=== PATIENT | male | born 1945 | race Caucasian/White ===

== ENCOUNTER → 2024-10-10 | Outpatient (CLI) | payer OTHER, SELFPAY ==
--- NOTE | 2024-10-10 12:50 | ECHOCS_ITS ---
Reason For Study: CAD/ASHD Procedure This was a 2D Doppler, Color Flow transthoracic echocardiogram. Contrast injection was performed. Exam performed in department. Left Ventricle Normal LV size. The left ventricular ejection fraction is 50 %. Mild segmental systolic dysfunction (see wall motion). Infero-Basal: Severely Hypokinetic. Right Ventricle Normal RV size. Normal systolic function. Atria Normal left atrium. Normal right atrium. Mitral Valve There is mild mitral annular calcification. Mild-Moderate (1-2+) mitral valve insufficiency. Tricuspid Valve Normal tricuspid valve. Mild to moderate (1-2+) tricuspid valve insufficiency. Pulmonary artery systolic pressure is 55 mmHg. Aortic Valve Trisinus/trileaflet aortic valve. Mild focal aortic valve thickening. Mild (1+) aortic valve insufficiency. Pulmonic Valve The pulmonic valve is not well visualized. Great Vessels Normal aortic root. The pulmonary artery is normal size. Pericardium/Pleural No pericardial effusion. Medication Diluted definity 1.5ml given slow IV push to enhance endocardial definition. MMode/2D Measurements & Calculations LVIDd: 5.1 cm IVSd: 1.0 cm LVOT diam: 2.0 cm LVIDs: 4.3 cm LVPWd: 1.1 cm RVDd: 3.8 cm FS: 14.6 % LVOT area: 3.1 cm2 Ao root diam: 3.3 cm LAV(MOD-bp): 37.0 ml LVAd ap4: 31.2 cm2 LAV(MOD-bp) Indexed: 18.7 ml/m2 LVLd ap4: 8.0 cm LAV(MOD-sp2): 45.4 ml EDV(MOD-sp4): 97.9 ml LAV(MOD-sp4): 30.6 ml EDV(sp4-el): 102.8 ml LVAs ap4: 21.0 cm2 LVLs ap4: 6.9 cm ESV(MOD-sp4): 52.8 ml ESV(sp4-el): 54.2 ml EF(MOD-sp4): 46.0 % EF(sp4-el): 47.3 % SV(MOD-sp4): 45.0 ml SV(sp4-el): 48.6 ml LA A4 area: 13.7 cm2 SI(MOD-sp4): 22.8 ml/m2 LA dimension(2D): 4.5 cm RA A4 area: 12.4 cm2 TAPSE: 0.74 cm Time Measurements MV dec time: 0.19 sec Doppler Measurements & Calculations MV E max ge: 106.3 cm/sec Lat Peak E' Ge: 4.5 cm/sec Med Peak E' Ge: 3.9 cm/sec MV A max ge: 65.0 cm/sec E/E' lat: 23.8 E/E' med: 27.6 MV E/A: 1.6 MV V2 max: 137.7 cm/sec MV dec slope: 561.6 cm/sec2 Ao V2 max: 171.5 cm/sec MV max P.6 mmHg Ao max P.8 mmHg MV V2 mean: 76.1 cm/sec Ao V2 mean: 116.6 cm/sec MV mean P.6 mmHg Ao mean P.2 mmHg MV V2 VTI: 31.9 cm Ao V2 VTI: 34.4 cm MVA(VTI): 2.1 cm2 AV (velocity ratio): 0.62 PAVEL(I,D): 1.9 cm2 PAVEL(V,D): 1.8 cm2 LV V1 max: 98.3 cm/sec SV(LVOT): 66.6 ml PA V2 max: 70.4 cm/sec LV V1 max P.9 mmHg LV V1 mean P.3 mmHg LV V1 mean: 73.2 cm/sec LV V1 VTI: 21.2 cm TR max ge: 354.4 cm/sec TR max P.3 mmHg ECHO/Echo Complete W/ Contrast Interpretation Summary The left ventricular ejection fraction is 50 %. Normal LV size. Mild segmental systolic dysfunction (see wall motion). Pulmonary artery systolic pressure is 55 mmHg. Contrast injection was performed. Ordering Physician: Giovani Armendariz Referring Physician: Jeffrey Michel Performed By: Juliane Mendoza, JOAQUIN, RVT
[2024-10-10 14:54] LABS: Color, Urine Yellow (Yellow); Glucose, Dipstick Normal (Normal); Ketone-Dipstick Negative (Negative); Leukocyte Esterase-Dipstick Negative /ul (Negative); Nitrite-Dipstick Negative (Negative); Occult Blood-Urine 25 /ul (Negative); Protein-Dipstick 30 mg/dl (Negative); Specific Gravity, Urine 1.015 (1.002-1.030); Urine Bilirubin Dipstick Negative (Negative); Urine Clarity Clear (Clear); Urine Urobilinogen 1 mg/dl (Normal)
[2024-10-10 15:15] LABS: ALB/GLOB Ratio 0.8 RATIO (0.9-2.4); AST(SGOT) 18 U/L (15-37); Alanine Aminotransfer ALT/SGPT 24 U/L (16-61); Albumin, Serum 3.5 g/dL (3.2-5.0); Alkaline Phosphatase 120 U/L (45-117); Anion Gap 5 (5-15); BUN 38 mg/dL (7-18); BUN/Creat Ratio 16.6 RATIO (10-20); Calcium,Total 9.6 mg/dL (8.5-10.1); Chloride 107 mmol/L (98-107); Creatinine, Serum 2.29 mg/dL (0.70-1.30); EST Glomerular Filtration Rate 29 mL/min (>60); Est Glom Filt Rate - Afr Amer 35 mL/min (>60); Globulin 4.3 g/dL (2.2-4.2); Glucose 132 mg/dL (74-106); Potassium 4.8 mmol/L (3.5-5.1); Protein, Total 7.8 g/dL (6.4-8.2); Sodium Level 139 mmol/L (136-145)
== END | disposition home or self-care (01) ==
LOC: CVS 12:49
PROVIDERS: PCP Internal Medicine; Referring Provider Chiropractor; Visit Provider Chiropractor
DX: I25.10 Atherosclerotic heart disease of native coronary artery without angina pectoris (principal); E11.9 Type 2 diabetes mellitus without complications
CPT/HCPCS: 36415; 80053; 81002; 93306; Q9957; A4216; C8929